=== PATIENT | female | born 1980 | race American Indian/Alaskan Native ===

== ENCOUNTER 2017-08-21 11:56 | Outpatient (CLI) | payer OTHER ==
[2017-08-21 14:57] LABS: Hematocrit 23.5 % (30.3-42.9); Hemoglobin 7.5 gm/dl (10.1-14.3); Mean Corpuscular HGB Conc 32 % (30-34); Platelet Count 225 K/mm3 (140-440); Red Blood Count 3.58 M/mm3 (3.65-5.03); Red Cell Distribution Width 18.4 % (13.2-15.2); White Blood Count 9.3 K/mm3 (4.5-11.0)
[2017-08-21 15:00] LABS: Mean Corpuscular Hemoglobin 21 pg (28-32); Mean Corpuscular Volume 66 fl (79-97)
[2017-08-21 15:12] LABS: Alanine Aminotransferase 6 units/L (7-56); Lactate Dehydrogenase 182 units/L (91-180); Uric Acid 5.3 mg/dL (3.5-7.6)
[2017-08-21] MEDS ORDERED: LACTATED RINGERS 500 ML IV ONE (17:11)
[2017-08-21 17:23] LABS: Bacteria,Urine 2+ /HPF (Negative); Bilirubin,Urine NEG (Negative); Blood,Urine NEG (Negative); Ketones,Urine 80 mg/dL (Negative); Leukocyte Esterase,Urine MOD (Negative); Mucus,Urine 1+ /HPF; Nitrite,Urine NEG (Negative); Protein,Urine <15 mg/dL mg/dL (Negative); Urobilinogen,Urine < 2.0 mg/dL (<2.0)
[2017-08-21] MEDS ORDERED: NORMODYNE ONE (19:24)
[2017-08-21] MEDS ORDERED: NORMODYNE PO ONE (19:31)
[2017-08-21 19:57] VITALS: BP 134/94
[2017-08-21] MEDS ORDERED: NORMODYNE PO SCH (22:00)
== END 2017-08-21 20:18 | disposition home or self-care (01) ==
LOC: TRG 11:56
PROVIDERS: ATTEND Obstetrics & Gynecology
DX: O09.523 Supervision of elderly multigravida, third trimester (principal); O47.03 False labor before 37 completed weeks of gestation, third trimester; Z3A.36 36 weeks gestation of pregnancy
CPT/HCPCS: 36415; 81001; 82565; 83615; 84450; 84460; 84550; 85027

== ENCOUNTER 2017-08-23 09:53 | Outpatient (CLI) | payer OTHER ==
[2017-08-23 11:07] LABS: Hematocrit 23.7 % (30.3-42.9); Hemoglobin 7.4 gm/dl (10.1-14.3); Mean Corpuscular HGB Conc 31 % (30-34); Platelet Count 223 K/mm3 (140-440); Red Cell Distribution Width 18.6 % (13.2-15.2); White Blood Count 8.5 K/mm3 (4.5-11.0)
[2017-08-23 11:09] LABS: Mean Corpuscular Hemoglobin 21 pg (28-32); Mean Corpuscular Volume 66 fl (79-97)
[2017-08-23 11:29] LABS: Alanine Aminotransferase 7 units/L (7-56); Lactate Dehydrogenase 161 units/L (91-180); Uric Acid 6.1 mg/dL (3.5-7.6)
[2017-08-23 13:23] LABS: Total Protein 24 Hour,Urine 202.5 (2-200)
[2017-08-23 13:47] VITALS: BP 131/77
--- NOTE | 2017-08-24 07:25 | Ultrasound Report ---
ULTRASOUND BIOPHYSICAL PROFILE: History: well being Technique: Transabdominal ultrasound with Doppler interrogation. 0 - breathing movements 2 - movements 2 - posture and tone 2 - Qualitative amniotic fluid volume 6 - TOTAL SCORE OF POSSIBLE 8 Heart Rate (bpm) 140
--- NOTE | 2017-08-24 07:26 | Ultrasound Report ---
ULTRASOUND OB LIMITED History: well being Technique: Transabdominal ultrasound with Doppler interrogation. Gestation: Single Position: Cephalic Amniotic Fluid: Normal NERIS = 10.3 cm Heart Rate: 139 BPM
== END 2017-08-23 15:00 | disposition home or self-care (01) ==
LOC: TRG 09:53
PROVIDERS: ATTEND Obstetrics & Gynecology Gynecology
DX: O09.523 Supervision of elderly multigravida, third trimester (principal); O47.03 False labor before 37 completed weeks of gestation, third trimester; Z3A.36 36 weeks gestation of pregnancy
CPT/HCPCS: 36415; 59025; 76815; 76819; 82565; 82570; 83615; 84156; 84450; 84460; 84550; 85027